=== PATIENT | male | born 1985 | race Caucasian/White ===

== ENCOUNTER 2023-09-06 11:02 | Emergency (ER) | payer BC, MEDICAID ==
[2023-09-06] MEDS ORDERED: Diphtheria,Pertussis(Acell),Tetanus Vaccine 0.5 ML Syringe IM ONE (12:19)
[2023-09-06] MEDS ORDERED: Rabies Vaccine (Avian) 2.5 Unit Inj Kit IM ONE (12:26)
[2023-09-06] MEDS ORDERED: Rabies Immune Globulin/PF (HyperRAB) 300 UNIT/ML 5 ML SDV IM ONE (12:45)
== END 2023-09-06 13:32 | disposition home or self-care (01) ==
LOC: MW.ED 11:02
DX: S61.451A Open bite of right hand, initial encounter (principal); Z23 Encounter for immunization; W55.01XA Bitten by cat, initial encounter
CPT/HCPCS: 90375; 90471; 90472; 90675; 90715; 96372; 99283; 99283-25

== ENCOUNTER 2023-09-09 12:03 | Emergency (ER) | payer BC ==
[2023-09-09] MEDS: Rabies Vaccine (Avian) 2.5 Unit Inj Kit IM ONE (14:15)
== END 2023-09-09 14:33 | disposition left against medical advice (07) ==
LOC: MW.ED 12:03
DX: Z29.14 Encounter for prophylactic rabies immune globulin (principal)
CPT/HCPCS: 90675

== ENCOUNTER 2023-09-13 13:58 | Emergency (ER) | payer BC ==
[2023-09-13] MEDS: Rabies Vaccine (Avian) 2.5 Unit Inj Kit IM ONE (14:33)
== END 2023-09-13 14:40 | disposition left against medical advice (07) ==
LOC: MW.ED 13:58
DX: Z29.14 Encounter for prophylactic rabies immune globulin (principal)
CPT/HCPCS: 90675

== ENCOUNTER 2023-09-20 14:53 | Emergency (ER) | payer BC ==
[2023-09-20] MEDS ORDERED: Rabies Vaccine (Avian) 2.5 Unit Inj Kit IM ONE (15:04)
== END 2023-09-20 15:55 | disposition home or self-care (01) ==
LOC: MW.ED 14:53
DX: Z29.14 Encounter for prophylactic rabies immune globulin (principal)
CPT/HCPCS: 90471; 90675